=== PATIENT | male | born 1990 | race American Indian/Alaskan Native ===

== ENCOUNTER 2020-06-20 08:01 | Outpatient (CLI) | payer MEDICAID ==
[2020-06-20] MEDS ORDERED: LIDOCAINE (4%) 40 MG/ML TOPICAL SOLN 50 ML BOTTLE TP ONE (08:10)
== END 2020-06-20 08:02 | disposition home or self-care (01) ==
LOC: WOUND 08:01
PROVIDERS: ATTEND Surgery
DX: L02.415 Cutaneous abscess of right lower limb (principal); L97.112 Non-pressure chronic ulcer of right thigh with fat layer exposed; G43.909 Migraine, unspecified, not intractable, without status migrainosus; N05.1 Unspecified nephritic syndrome with focal and segmental glomerular lesions; Z99.2 Dependence on renal dialysis

== ENCOUNTER 2020-06-27 08:11 | Outpatient (CLI) | payer MEDICAID ==
[2020-06-27] MEDS ORDERED: LIDOCAINE (4%) 40 MG/ML TOPICAL SOLN 50 ML BOTTLE TP ONE (08:30)
== END 2020-06-27 08:12 | disposition home or self-care (01) ==
LOC: WOUND 08:11
PROVIDERS: ATTEND Surgery
DX: L02.415 Cutaneous abscess of right lower limb (principal); L97.112 Non-pressure chronic ulcer of right thigh with fat layer exposed; G43.909 Migraine, unspecified, not intractable, without status migrainosus; N05.1 Unspecified nephritic syndrome with focal and segmental glomerular lesions; Z99.2 Dependence on renal dialysis

== ENCOUNTER 2020-07-04 08:00 | Outpatient (CLI) | payer MEDICAID ==
[2020-07-04] MEDS ORDERED: LIDOCAINE (4%) 40 MG/ML TOPICAL SOLN 50 ML BOTTLE TP ONE (08:30)
== END 2020-07-04 08:01 | disposition home or self-care (01) ==
LOC: WOUND 08:00
PROVIDERS: ATTEND Surgery
DX: L02.415 Cutaneous abscess of right lower limb (principal); L97.112 Non-pressure chronic ulcer of right thigh with fat layer exposed; G43.909 Migraine, unspecified, not intractable, without status migrainosus; N05.1 Unspecified nephritic syndrome with focal and segmental glomerular lesions; Z99.2 Dependence on renal dialysis

== ENCOUNTER 2020-07-11 08:00 | Outpatient (CLI) | payer MEDICAID ==
[2020-07-11] MEDS ORDERED: LIDOCAINE (4%) 40 MG/ML TOPICAL SOLN 50 ML BOTTLE TP ONE (09:00)
== END 2020-07-11 08:01 | disposition home or self-care (01) ==
LOC: WOUND 08:00
PROVIDERS: ATTEND Surgery
DX: L02.415 Cutaneous abscess of right lower limb (principal); L97.112 Non-pressure chronic ulcer of right thigh with fat layer exposed; G43.909 Migraine, unspecified, not intractable, without status migrainosus; N05.1 Unspecified nephritic syndrome with focal and segmental glomerular lesions; Z99.2 Dependence on renal dialysis

== ENCOUNTER 2020-07-18 08:01 | Outpatient (CLI) | payer MEDICAID ==
[2020-07-18] MEDS ORDERED: LIDOCAINE (4%) 40 MG/ML TOPICAL SOLN 50 ML BOTTLE TP ONE (08:06)
== END 2020-07-18 08:02 | disposition home or self-care (01) ==
LOC: WOUND 08:01
PROVIDERS: ATTEND Surgery
DX: L02.415 Cutaneous abscess of right lower limb (principal); L97.112 Non-pressure chronic ulcer of right thigh with fat layer exposed; G43.909 Migraine, unspecified, not intractable, without status migrainosus; N05.1 Unspecified nephritic syndrome with focal and segmental glomerular lesions; Z99.2 Dependence on renal dialysis

== ENCOUNTER 2020-08-01 08:15 | Outpatient (CLI) | payer MEDICAID | END 2020-08-01 08:16 | disposition home or self-care (01) | LOC: WOUND 08:15 | PROVIDERS: ATTEND Surgery | DX: L02.415 Cutaneous abscess of right lower limb (principal); L97.112 Non-pressure chronic ulcer of right thigh with fat layer exposed; G43.909 Migraine, unspecified, not intractable, without status migrainosus; N05.1 Unspecified nephritic syndrome with focal and segmental glomerular lesions; Z99.2 Dependence on renal dialysis | CPT/HCPCS: 99213; G0463 ==